=== PATIENT | male | born 1975 | race Caucasian/White ===

== ENCOUNTER 2016-07-09 19:04 | Emergency (ER) | payer MEDICAID ==
[2016-07-09 19:25] VITALS: TEMP 97.6; BMI 23.8
--- NOTE | 2016-07-09 19:46 | EDPRACDOC ---
- General Information Chief Complaint: Flu-Like Symptoms Stated Complaint: CP CONGESTION Time Seen by Provider: 07/09/16 19:27 Mode Of Arrival: Car Home Medications: Home Medications Albuterol Sulfate [Proair Hfa] 2 puff INH Q4 PRN #1 inhaler 07/09/16 Azithromycin [Zithromax] 250 mg PO DAILY #6 tablet 07/09/16 Prednisone [Deltasone, Orasone] 20 mg PO DAILY #12 tab 07/09/16 Allergies/Adverse Reactions: Allergies Allergy/AdvReac Type Severity Reaction Status Date / Time No Known Allergies Allergy Verified 10/16/15 03:39 - History of Present Illness Onset: [employer] Current Symptoms: Reports: Cough, Nasal Symptoms, Myalgia. Denies: Earache, Fever, Nausea, Vomiting Shortness of Breath: Mild Cough: Reports: Non-productive Rhinorrhea: Reports: Clear Ear Symptoms: Reports: None Fever Severity/Quality: Reports: subjective Oral Intake: Normal Urinary Output: Normal ED Past Medical History - History Reviewed Yes Nurses notes reviewed and agree except as marked - Patient Medical History Respiratory History: Reports: COPD Psychological History: Reports: Depression, Schizophrenia, Bipolar Disorder. Denies: Substance Use Disorder Surgical History: Reports: Other (Tooth extraction) - Family Medical History Denies: Cardiac Disorders - Social Medical History Smoking Status: Heavy tobacco smoker (5 or more cigarettes/day or daily pipe/ cigar) Social History: Denies: Substance Use Disorder EDM Review of Systems - Review of Systems ROS Negative Except as Marked: Yes All systems reviewed and were negative except as marked - Physical Exam Constitutional: No apparent distress, Alert Last recorded Vital Signs: Last Vital Signs Temp 97.6 F 07/09/16 19:23 Pulse 66 07/09/16 19:23 Resp 20 07/09/16 19:23 BP 143/100 07/09/16 19:23 Pulse Ox 99 07/09/16 19:23 Oxygen Pulse Oxygen Saturation 99 O2 Device Room Air Oxygen Flow Rate Fraction of Inspired Oxygen ( FIO2) - HEENT Head: Normal Eye Exam: Normal. negative: Pale Conjunctiva, Scleral Icterus Oropharynx: negative: Membranes Dry Nose: No Symptoms Reported Neck: Normal. negative: Edema, Limited ROM, Lymphadenopathy, Meningeal Signs - Respiratory/Cardiovascular Respiratory: Rhonchi. negative: Accessory Muscle Use, Rales, Retractions, Tachypnea, Wheezes Cardiovascular: Normal - Musculoskeletal Extremities: Normal - Integumentary Skin: Normal - Diagnostic Imaging Chest Image interpreted by: Radiologist Patient Name: IESHA NICE LOC: ED : 1975 AGE: 40 Order Date:07/09/16 Date of Service:09/19 Report # [id number] Ord Physician: Coty Hopper MD Exam # [id number] Emergency Physician: Coty Hopper MD Exam(s): [id number] RAD/DG CHEST 2V CLINICAL DATA: Shortness of breath. Cough, congestion, pain in the left lower side. EXAM: CHEST 2 VIEW COMPARISON: 05/22/2016 FINDINGS: Heart size is normal. There is mild perihilar peribronchial thickening. There are no focal consolidations or pleural effusions. No pulmonary edema. IMPRESSION: 1. Bronchitic changes. 2. No focal acute pulmonary abnormality. Electronically Signed By: Cheryle Raines M.D. On: 07/09/2016 19:59 Electronically Signed By: Cheryle Raines MD Electronically Signed Date/Time: Dictate Date/Time: 07/09/161957 Technologist: Tina Lopez Transcribed By: Francesco Transcribed Date/Time: 07/09/161958 - Departure Disposition: Home Condition: Stable Final Diagnosis: Acute bronchitis Instructions: Acute Bronchitis (ED) Education/Counseling Given To: Patient Education/Counseling Given Regarding: Diagnosis, Treatment Referrals: None,No Provider [Primary Care Provider] - One Week Prescriptions: New Albuterol Sulfate [Proair Hfa] 2 puff INH Q4 PRN #1 inhaler PRN Reason: WHEEZE OR COUGH Azithromycin [Zithromax] 250 mg PO DAILY #6 tablet Prednisone [Deltasone, Orasone] 20 mg PO DAILY #12 tab
--- NOTE | 2016-07-09 20:01 | DIRPT ---
CLINICAL DATA: Shortness of breath. Cough, congestion, pain in the left lower side. EXAM: CHEST 2 VIEW COMPARISON: 05/22/2016 FINDINGS: Heart size is normal. There is mild perihilar peribronchial thickening. There are no focal consolidations or pleural effusions. No pulmonary edema. IMPRESSION: 1. Bronchitic changes. 2. No focal acute pulmonary abnormality. Electronically Signed By: Cheryle Raines M.D. On: 07/09/2016 19:59
[2016-07-09 20:35] VITALS: BP 140/81; PULSE 67
== END 2016-07-09 20:26 | disposition home or self-care (01) ==
LOC: ED 19:04
DX: J20.9 Acute bronchitis, unspecified (principal)
CPT/HCPCS: 71020; 99283